=== PATIENT | female | born 1975 | race Native Hawaiian/Other Pacific Islander ===

== ENCOUNTER 2022-02-14 19:12 | Emergency (ER) | payer OTHER ==
[~2022-02-14] VITALS: Ht 170.2 cm; Wt 86.2 kg
[2022-02-14 19:12] VITALS: BP 147/82; TEMP 99.1
== END 2022-02-14 20:05 | disposition left against medical advice (07) ==
LOC: ED 19:12
DX: R51.9 Headache, unspecified (principal); R05.8 Other specified cough; R06.02 Shortness of breath; Z53.29 Procedure and treatment not carried out because of patient's decision for other reasons
CPT/HCPCS: 99282